=== PATIENT | male | born 1995 ===

== ENCOUNTER 2018-10-06 19:34 | Inpatient (IN) | payer OTHER, MEDICAID ==
[2018-10-06 20:52] VITALS: BMI 32.1
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
[2018-10-06 21:18] LABS: BASO # 0.01 K/mm3 (0.0-2.0); BASO % 0.1 % (0.0-3.0); EOS # 0.1 (0.0-0.7); EOS % 0.5 % (1.5-5.0); HEMOGLOBIN 15.8 g/dL (14.0-18.0); LYMPH # 1.5 (1.2-3.4); LYMPH % 12.7 % (22.0-35.0); MEAN CELL VOLUME 83.7 fl (80.0-105.0); MEAN CORPUSCULAR HGB CONC 34.6 g/dl (31.0-37.0); MEAN PLATELET VOLUME 9.7 fl (7.0-11.0); MONO # 0.9 (0.1-0.6); MONO % 7.4 % (1.0-6.0); RBC 5.45 10^6/uL (3.5-6.1); RED CELL DISTRIBUTION WIDTH 13.1 % (11.5-14.5); WHITE BLOOD COUNT 11.7 10^3/uL (4.5-11.0)
[2018-10-06 22:10] LABS: ALB/GLOB RATIO 1.5 (1.1-1.8); ALBUMIN 4.6 g/dL (3.0-4.8); ALT/SGPT 38 U/L (7-56); AST/SGOT 30 U/L (17-59); BLOOD UREA NITROGEN 10 mg/dL (7-21); CALCIUM 9.6 mg/dL (8.4-10.5); GFR NON-AFRICAN AMERICAN > 60
[2018-10-07 00:52] LABS: PH,URINE 6.5 (4.7-8.0); URINE BILIRUBIN NEGATIVE (NEGATIVE); URINE BLOOD NEGATIVE (NEGATIVE); URINE GLUCOSE (UA) NEGATIVE (NEGATIVE); URINE LEUKOCYTE ESTERASE NEGATIVE Leu/uL (NEGATIVE); URINE PROTEIN NEGATIVE mg/dL (<30 mg/dL); URINE UROBILINOGEN 0.2 E.U./dL (<1 E.U./dL)
[2018-10-07 00:53] LABS: URINE APPEARANCE CLEAR (CLEAR); URINE COLOR YELLOW (YELLOW)
[2018-10-07 01:10] LABS: BARBITURATES, UR NEGATIVE (NEGATIVE); BENZODIAZEPINES, UR NEGATIVE (NEGATIVE); OPIATES, UR NEGATIVE (NEGATIVE); PHENCYCLIDINE, UR NEGATIVE (NEGATIVE)
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
--- NOTE | 2018-10-07 07:51 | RAD ---
Date of service: 10/06/2018 HISTORY: psych eval COMPARISON: No prior. FINDINGS: LUNGS: Low lung volumes, crowded bronchovascular markings and mild bibasilar atelectasis. PLEURA: No significant pleural effusion identified, no pneumothorax apparent. CARDIOVASCULAR: No aortic atherosclerotic calcification present. Heart size is upper limits of normal in size. No pulmonary vascular congestion. OSSEOUS STRUCTURES: No significant abnormalities. VISUALIZED UPPER ABDOMEN: Normal. OTHER FINDINGS: None. IMPRESSION: Low lung volumes, crowded bronchovascular markings and mild bibasilar atelectasis.
--- NOTE | 2018-10-07 10:03 | CARD ---
APPROVED REPORT Date of service: 10/06/2018 EKG Measurement Heart [id number] NM [id number] <Conclusion> Sinus tachycardia Otherwise normal ECG
[2018-10-07] MEDS ORDERED: DiphenhydrAMINE 50 mg/ml Inj IM PRN (15:56)
[2018-10-07] MEDS: Divalproex 500 mg DR(BID formulation) PO SCH (17:25)
[2018-10-07] MEDS: OLANZapine 5 mg Disintegrating Tab PO SCH ×2 (17:26→21:10)
--- NOTE | 2018-10-07 18:13 | PCM.BM ---
<Tenisha Ballard - Last Filed: 10/07/18 18:10> Treatment Plan Problems - Problems identified on initial assessmt INEFFECTIVE IMPULSE CONTROL Date Initiated: 10/07/18 Time Initiated: 18:00 Assessment reference: NA Status: Active Priority: 1 MEDICATION NON ADHERENCE Date Initiated: 10/07/18 Time Initiated: 18:00 Assessment reference: NA Status: Active Priority: 2 AGITATED/AGRESSIVE BEHAVIOR Date Initiated: 10/07/18 Time Initiated: 18:00 Assessment reference: NA Status: Active Priority: 3 Treatment assets and liabiliti Patient Assests: cooperative, good support system, cognitively intact Patient Liabilities: other (POOR IMPULSE CONTROL) - Milieu Protocol Maintain good personal hygiene: every shift Encourage regular showers, every shift Remind patient to perform daily oral care, every shift Assist patient to perform ADL's Maintain personal safety: daily Educate patient to report safety concerns to staff, daily Monitor environment for contraband/sharps Medication safety: Monitor for expected outcome, potential side effects: daily, Assess barriers to learning: daily, Assess readiness for medication education: daily Discharge/Continuing Care - Education Needs Education Needs: Patient Medication, Patient Diagnosis/Disease Process, Patient Coping Skills, Patient Community resources, Patient Activities of Daily Living, Patient Nutrition, Patient Health Practices/Safety, Patient Personal Hygiene/Grooming, Patient Aftercare Safety Plan - Discharge Discharge Criteria: Tolerates medication w/o severe side effects, Free of Homicidal thoughts, Free of agitation, Normal sleep pattern, Ability to care for self, Reduction of target symptoms Discharge to:: Home <Sayra Llamas - Last Filed: 10/08/18 12:32> - Diagnosis (1) ADHD (attention deficit hyperactivity disorder) Status: Acute Interventions: 10/08/18 12:32 med management (2) Disruptive, impulse control, 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 Status: Acute Interventions: 10/08/18 12:33 Psychoeducation Psychopharmacology/adjustment of medications as needed/ monitoring possible side effects Monitor blood level of mood stabilizers Evaluate pt on daily basis Compliance with medications and follow up appointments Suicide and homicide risk assessment and prevention, coping strategies, safety plan Relapse prevention Reduction of symptoms Improve functional status Family involvement As outpatient: cognitive behavioral therapy, relaxation techniques, breathing exercises (3) Bipolar affective, mixed, unspec Status: Acute Interventions: 10/08/18 12:35 Bipolar disorder needs to be ruled out <Yodit Sullivan Y - Last Filed: 10/09/18 14:41> Family Contact Family involvement: Family/SO is involved Family contact: Patient agrees to contact Family contact name: Dayna Garcia, mother Family contacted how many times per week?: 2
[2018-10-07 18:52] VITALS: O2SAT 96
[2018-10-08 07:19] VITALS: RESP 20
[2018-10-08 08:04] LABS: HDL CHOLESTEROL 37 mg/dL (29-60)
[2018-10-08 08:16] LABS: LDL CHOLESTEROL 122 mg/dL (0-129)
[2018-10-08 08:27] LABS: FREE T4 1.16 ng/dL (0.78-2.19)
[2018-10-08] MEDS: Divalproex 500 mg DR(BID formulation) PO SCH ×2 (09:41→18:03)
[2018-10-08] MEDS: OLANZapine 5 mg Disintegrating Tab PO SCH ×3 (09:41→21:04)
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
[2018-10-09] MEDS: Divalproex 500 mg DR(BID formulation) PO SCH ×2 (09:00→17:00)
[2018-10-09] MEDS: OLANZapine 5 mg Disintegrating Tab PO SCH ×3 (09:01→21:38)
--- NOTE | 2018-10-09 11:55 | PCM.PYCHPN ---
Psychiatric Progress Note - Psychiatric Progress Note Patient seen today, length of contact: 25 min Problems Identified/Issues Discussed: I reviewed assessment and recent notes. Patient was interviewed at bedside and I met with patient again during treatment team meeting. He is groomed and well-meaghan ented to month, year and location. Presents as friendly with positive attitude. Patient reports he is feeling better since admission and denies any new concerns. States that he is "feeling good, sleeping well and eating okay". Feels comfortable on the unit and has been tolerating his medications. Staff notes indicate that patient has been in good control (though has a history of anger, threats, violence and poor impulse control). There have been no behavioral issues and he remains quiet without complaints. Behavior has been fairly predictable thus far. Diagnostic Results: Impulse control disorder As per history of ADHD Rule out bipolar disorder Medication Change: No Medical Record Reviewed: Yes Mental Status Examination - Cognitive Function Orientation: Person, Place, Situation, Time Attention: WNL Concentration: WNL Association: WNL Fund of Knowledge: WNL - Mood Mood: Other ( "feeling good, sleeping well and eating okay".) - Affect Affect: Constricted (at times reactive, pleasant) - Formal Thought Process Formal Thought Process: No Impairment, Other (but concrete) - Suicidal Ideation Suicidal Ideation: No - Homicidal Ideation Homicidal Ideation: No Goal/Treatment Plan - Goal/Treatment Plan Progress Toward Problem(s) and Goals/Treatment Plan: * c/w current tx and plan: * Depakote 500 mg BID for mood stabilization * Zyprexa 5 mg TID for psychosis and mood stabilization * Ambien 5 mg at the nighttime for insomnia * Vitals reviewed and noted below: Selected Entries 10/08/18 10/08/18 07:00 16:00 Temperature 98.4 F Pulse Rate 102 H 91 H Respiratory 20 Rate Blood Pressure 131/83 124/71 * No new lab results noted thus far today
[2018-10-10] MEDS: OLANZapine 5 mg Disintegrating Tab PO SCH ×3 (09:30→21:33)
[2018-10-10] MEDS: Divalproex 500 mg DR(BID formulation) PO SCH ×2 (09:30→18:25)
--- NOTE | 2018-10-10 09:51 | PCM.PYCHPN ---
Psychiatric Progress Note - Psychiatric Progress Note Patient seen today, length of contact: 25 min Problems Identified/Issues Discussed: I reviewed recent notes and patient was interviewed at bedside this morning. He remains groomed and well-oriented to month, year and location. Presents as frien dly with positive attitude. Patient reports he is feeling better since admission and denies any new concerns. States that he is "feeling good, sleeping well and eating okay". Feels comfortable on the unit and has been tolerating his medications. Patient denies any new concerns Staff notes indicate that patient has been in good control (though has a history of anger, threats, violence and poor impulse control). There have been no behavioral issues and he remains quiet without complaints. Behavior has been fairly predictable thus far on the unit. Patient seems to do well when he takes his medications. 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 Diagnostic Results: Impulse control disorder As per history of ADHD Rule out bipolar disorder Medication Change: No Medical Record Reviewed: Yes Mental Status Examination - Cognitive Function Orientation: Person, Place, Situation, Time Attention: WNL Concentration: WNL Association: WN Fund of Knowledge: WN - Mood Mood: Other ( "feeling good, sleeping well and eating okay".) - Affect Affect: Constricted (at times reactive, pleasant) - Formal Thought Process Formal Thought Process: No Impairment, Other (but concrete) - Suicidal Ideation Suicidal Ideation: No - Homicidal Ideation Homicidal Ideation: No Goal/Treatment Plan - Goal/Treatment Plan Progress Toward Problem(s) and Goals/Treatment Plan: * c/w current tx and plan: * Depakote 500 mg BID for mood stabilization, check VPA level * Zyprexa 5 mg TID for psychosis and mood stabilization * Ambien 5 mg at the nighttime for insomnia * Vitals reviewed and noted below: Selected Entries 10/08/18 10/08/18 07:00 16:00 Temperature 98.4 F Pulse Rate 102 H 91 H Respiratory 20 Rate Blood Pressure 131/83 124/71 * No new lab results noted thus far today
[2018-10-11] MEDS: Divalproex 500 mg DR(BID formulation) PO SCH ×2 (08:27→16:33)
[2018-10-11] MEDS: OLANZapine 5 mg Disintegrating Tab PO SCH ×3 (08:28→21:21)
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
[2018-10-12] MEDS: OLANZapine 5 mg Disintegrating Tab PO SCH ×3 (08:31→21:43)
[2018-10-12] MEDS: Divalproex 500 mg DR(BID formulation) PO SCH ×2 (08:32→16:24)
--- NOTE | 2018-10-12 10:08 | PCM.PYCHPN ---
Psychiatric Progress Note - Psychiatric Progress Note Patient seen today, length of contact: 30 minutes Problems Identified/Issues Discussed: I reviewed recent notes and patient was interviewed at bedside this morning. He remains groomed and well-oriented to month, year and location. Presents as friendly with positive attitude. Patient reports he is feeling better since admission and denies any new concerns. States that he is "feeling good, sleeping well and eating okay". Feels comfortable on the unit and has been tolerating his medications. Patient denies any new concerns except for worrying about his disposition after discharge. Patient indicates that he would like to return to his mothers home. Staff notes indicate that patient has been in good control (though has a history of anger, threats, violence and poor impulse control). There have been no behavioral issues and he remains quiet without complaints. Behavior has been fairly predictable thus far on the unit. Diagnostic Results: Impulse control disorder As per history of ADHD Rule out bipolar disorder Medication Change: No Medical Record Reviewed: Yes Mental Status Examination - Cognitive Function Orientation: Person, Place, Situation, Time Attention: WNL Concentration: WNL Association: WNL Fund of Knowledge: WN - Mood Mood: Other ( "feeling good, sleeping well and eating okay".) - Affect Affect: Constricted (presented calm) - Formal Thought Process Formal Thought Process: No Impairment, Other (but concrete) - Suicidal Ideation Suicidal Ideation: No - Homicidal Ideation Homicidal Ideation: No Goal/Treatment Plan - Goal/Treatment Plan Need for Continued Stay: Remain at risks for inpatient hospitalization, Severe depression anxiety, Discharge may exacerbated symptoms, Severe functional impairment Progress Toward Problem(s) and Goals/Treatment Plan: * c/w current tx and plan: * Vitals reviewed and noted below: Selected Entries 10/09/18 10/09/18 10/10/18 06:59 16:00 07:16 Temperature 97.3 F L 98.3 F Pulse Rate 93 H 91 H 77 Respiratory 20 20 Rate Blood Pressure 105/61 121/82 119/65 10/11/18 10/11/18 07:13 15:00 Temperature 98.4 F Pulse Rate 70 102 H Respiratory 20 20 Rate Blood Pressure 127/74 139/69 * No new lab results noted thus far today Estimated Date of D/C: 10/22/18
[2018-10-13] MEDS: Divalproex 500 mg DR(BID formulation) PO SCH ×2 (08:01→16:38)
[2018-10-13] MEDS: OLANZapine 5 mg Disintegrating Tab PO SCH ×3 (08:01→21:19)
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
[2018-10-14] MEDS: OLANZapine 5 mg Disintegrating Tab PO SCH ×3 (09:31→21:40)
[2018-10-14] MEDS: Divalproex 500 mg DR(BID formulation) PO SCH (09:32)
[2018-10-14] MEDS ORDERED: OLANZapine 10 mg Disintegrating Tab PO SCH (14:50)
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
[2018-10-14] MEDS: Divalproex 250 mg DR (BID formulation) PO SCH (21:34)
[2018-10-15] MEDS: OLANZapine 5 mg Disintegrating Tab PO SCH ×3 (09:04→21:14)
[2018-10-15] MEDS: Divalproex 500 mg DR(BID formulation) PO SCH (09:05)
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
[2018-10-15] MEDS: Divalproex 250 mg DR (BID formulation) PO SCH (21:13)
[2018-10-16 07:17] VITALS: BP 126/73; PULSE 80; TEMP 97.9
[2018-10-16] MEDS: OLANZapine 5 mg Disintegrating Tab PO SCH (09:17)
[2018-10-16] MEDS: Divalproex 500 mg DR(BID formulation) PO SCH (09:17)
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
--- NOTE | 2018-10-16 20:47 | CON ---
DATE: 10/16/2018 HISTORY OF PRESENT ILLNESS: I saw him in psychiatry floor. I was called to evaluate this 23-year-old man, who went in for psychiatric evaluation about arguing and not doing well. He has ADHD. No other medical history. Left knee, he had bone removed, bleeding hemorrhoids with banding. He has anxiety, bipolar, depression, hallucination, impulse control disorder, violence, and ADHD. FAMILY HISTORY: No known family history. SOCIAL HISTORY: Nonsmoker, nondrinker, and no drugs. ALLERGIES: NO KNOWN DRUG ALLERGIES. MEDICATIONS: He is supposed to be on Cogentin, Risperdal, and Ativan. REVIEW OF SYSTEMS: No acute vision or hearing changes. No sore throat. No chest pain. No palpitations. No shortness of breath or cough. No abdominal pain. No nausea, vomiting, constipation, or diarrhea. No leg issues. No skin issues. PHYSICAL EXAMINATION: GENERAL: He is a well-appearing, nontoxic, comfortable, alert and oriented x3, and no complaints. VITAL SIGNS: He has a 97.9 temperature, 108 pulse, 18 respiratory rate, 125/87 blood pressure, and 98% O2 sat. HEENT: Head is atraumatic and normocephalic. Extraocular muscles are intact. Throat is moist. NECK: Supple. HEART: Regular rate. Normal S1 and S2. LUNGS: Decreased breath sounds, but clear to auscultation. No wheezes. No rhonchi. No rales. ABDOMEN: Soft and nontender. Positive bowel sounds. No guarding. No rebound. No CVA tenderness. EXTREMITIES: Have no edema. NEUROLOGIC: GCS is 50. Cranial nerves II through XII are grossly intact. Alert and oriented x3. He can stick out his tongue midline. He can close his eyes tight. He can put his arms over his head overall. Neurologically, he seems intact. SKIN: Warm and dry. No apparent rashes or ulcers. LYMPHS: Thyroid midline. No palpable cervical lymphadenopathy. LABORATORY DATA: He had some blood tests that was the psychiatrist was concerned about. There was RPR nonreactive. Toxicology shows valproic acid of 49, otherwise okay. Urine was clean. He has a 140 sodium, potassium 4.1, BUN 10, creatinine 0.8, GFR is greater than 60, sugar is 99, calcium 9.6, and magnesium 2. Total bili is 0.3, AST is 30, ALT is 30, alkaline phosphatase is 76, and total protein is 7.7. His triglycerides are high at 193. Cholesterol is high at 204. We will change his diet around. TSH is 1.76. White count 7.7, hemoglobin 15.8, hematocrit 45.6, and platelets 175. We will repeat the labs tomorrow coming down. ASSESSMENT AND PLAN: I would not put him on any medication for this. He is currently on Ambien, Ativan, Benadryl, Depakote, Haldol, and Zyprexa. We will check his labs, change his diet, and we will see how he does. If it still elevated tomorrow, I will put him on medication for his elevated lipid. Thanh Mcknight DO MTDD
== END 2018-10-16 17:27 | disposition home or self-care (01) | DRG 885 ==
LOC: ED 19:34 → ERH 10-07 08:05 → PSYC 10-07 15:32
PROVIDERS: ADMIT Psychiatry & Neurology Psychiatry; ATTEND Psychiatry & Neurology Psychiatry
DX: F20.9 Schizophrenia, unspecified (principal); F31.60 Bipolar disorder, current episode mixed, unspecified; F41.9 Anxiety disorder, unspecified; F63.9 Impulse disorder, unspecified; F90.9 Attention-deficit hyperactivity disorder, unspecified type; G47.00 Insomnia, unspecified; R45.850 Homicidal ideations; Z79.899 Other long term (current) drug therapy; Z91.14 Patient's other noncompliance with medication regimen